=== PATIENT | female | born 1990 | race Caucasian/White ===

== ENCOUNTER → 2021-10-31 14:51 | Outpatient (CLI) | payer OTHER, SELFPAY ==
--- NOTE | 2021-10-31 | DI.US.S_ITS ---
PROCEDURE: US PELVIC COMPLETE INDICATIONS: BLEEDING IN FIRST TRIMESTER TECHNIQUE: Real-time scanning was performed of the pelvic organs, with image documentation. Additional endovaginal scanning was necessary due to incomplete visualization of the adnexal and endometrial structures by transabdominal scanning. COMPARISON: None. FINDINGS: Uterus: Uterus is anteverted and normal in size at 9.1 x 4.8 x 5.9 cm. The myometrium is homogeneous. The endometrium measures 14 point mm combined thickness. No IUP. Ovaries: The right ovary measures 2.4 x 2.1 x 1.9 cm, with a calculated ovarian volume of 4.9 cc. The left ovary measures 2.2 x 2.0 x 2.5 cm, with a calculated ovarian volume of 5.7 cc. The ovaries have a normal sonographic appearance. Less than 12 follicles can be seen in each ovary. No adnexal masses are seen. Other: No pathologic free abdominal or pelvic fluid. 1. IMPRESSION: No intra-or extrauterine is identified. Differential considerations would include spontaneous , early intrauterine gestation as well as occult ectopic . Recommend clinical correlation with serial beta-hCGs and/or followup sonographic imaging if indicated. We strive to produce accurate, complete, and clear reports of imaging services. To assist us in improving patient care, this report was composed using standard report templates and voice recognition software. Therefore, it may contain abnormal punctuation, insertions and/or omissions. Occasional wrong-word or sound-alike substitutions may occur. Though we review the report and make efforts to correct it, we do recommend that the report be read carefully in proper context to recognize any text inaccuracies. Dictated by: Colton Magdaleno [facility] Interpreted: David Mar MD on 10/31/2021 at 15:30 Transcribed by: RUDOLPH on 10/31/2021 at 15:47 Approved by: David Mar M.D. on 10/31/2021 at 16:21
== END ==
PROVIDERS: Referring Provider Nurse Practitioner Obstetrics & Gynecology; Visit Provider Nurse Practitioner Obstetrics & Gynecology
DX: O26.851 Spotting complicating pregnancy, first trimester (principal)
CPT/HCPCS: 76856

== ENCOUNTER → 2022-06-10 15:52 | Outpatient (CLI) | payer OTHER, SELFPAY ==
--- NOTE | 2022-06-10 15:55 | DI.US.S_ITS ---
PROCEDURE: US OB >= 14 WEEKS FETUS INDICATIONS: ANATOMY SCAN OUTSIDE/PRIOR DATING DATA: Last menstrual period (LMP): 01/18/2022. LMP-based estimated date of delivery (CHERY): 10/25/2022. First dating scan (date and location): Today's exam. Estimated date of delivery (CHERY) from first dating scan: 10/27/2022. The calculations are made using the clinical CHERY of 10/25/2022. TECHNIQUE: Real-time scanning was performed of the fetus, with image documentation and biometric measurements. Endovaginal scanning: Not performed COMPARISON: None. FINDINGS: General: A single living intrauterine gestation is present. Presentation: Variable. Placenta: Placental position is posterior , without previa. Amniotic fluid index: 12.6 cm, normal range is 5-24 cm. Single deepest vertical pocket is 3.7 cm. heart rate: 141 beats per minute. Maternal cervical canal: 8.1 cm long. Normal lower limit is 2.5 cm. biometrics: Biparietal diameter: 4.4 cm, 19 weeks 3 days Head circumference: 17.4 cm, 19 weeks 6 days Abdominal circumference: 15.2 cm, 20 weeks 3 days Femur length: 3.4 cm, 20 weeks 6 days Clinically estimated gestational age: 20 weeks 3 days Composite gestational age from present scan: 20 weeks 1 day Estimated weight and percentile: 357 g, 48th percentile Anatomic survey: Neuro: Ventricles are non-dilated at less than 10 mm. Cisterna magna is normal at 3-11 mm. Cerebellum is normal in size and morphology. Nuchal skin fold: Normal at less than 6 mm between 14-21 weeks gestational age. Face: Nose and lips, facial profile are normal. Spine: No evidence for spina bifida. Heart: 4-chambered heart is present, with normal ventricular outflow tracts. Diaphragm: Diaphragm is intact. Stomach: Left-sided stomach is present. Kidneys: No hydronephrosis. Normal is less than 5 mm in 2nd trimester, less than 7 mm in 3rd trimester. Cord: 3-vessel cord has orthotopic insertion. Bladder: Normal in size. Extremities: All 4 extremities identified. IMPRESSION: Single living intrauterine at 20 weeks 3 days, CHERY of 10/25/2022. Normal anatomy survey. Estimated weight of 357 g, 47th percentile. We strive to produce accurate, complete, and clear reports of imaging services. To assist us in improving patient care, this report was composed using standard report templates and voice recognition software. Therefore, it may contain abnormal punctuation, insertions and/or omissions. Occasional wrong-word or sound-alike substitutions may occur. Though we review the report and make efforts to correct it, we do recommend that the report be read carefully in proper context to recognize any text inaccuracies. Dictated by: Guillaume Minor M.D. on 06/10/2022 at 16:57 Approved by: Guillaume Minor M.D. on 06/10/2022 at 17:00
== END ==
PROVIDERS: Referring Provider Nurse Practitioner Obstetrics & Gynecology; Visit Provider Nurse Practitioner Obstetrics & Gynecology
DX: Z34.02 Encounter for supervision of normal first pregnancy, second trimester (principal); Z3A.20 20 weeks gestation of pregnancy
CPT/HCPCS: 76811

== ENCOUNTER → 2022-07-21 08:09 | Outpatient (CLI) | payer OTHER, SELFPAY ==
[2022-07-21 08:55] LABS: Hematocrit 32.3 % (36-46); Mean Corpuscular HGB Conc 33.9 % (30-36); Mean Corpuscular Hemoglobin 28.3 PG (26-34); Mean Corpuscular Volume 83.4 fL (80-100); Platelet Count 212 X10^3/uL (150-400); Red Blood Cell Count 3.87 X10^6/uL (4.0-5.2); Red Cell Distribution Width 14.1 % (11.6-14.8); White Blood Cell Count 13.2 X10^3/uL (4.5-11.0)
[2022-07-21 09:15] LABS: Glucose Fasting 83 mg/dL (70-100)
[2022-07-21 10:16] LABS: Glucose 1 Hour 120 mg/dL (70-170)
[2022-07-21 10:29] LABS: Glucose Tol Interpretation INTERPRETATION
[2022-07-21 11:13] LABS: Glucose 2 Hour 105 mg/dL (70-140)
== END ==
PROVIDERS: Referring Provider Nurse Practitioner Obstetrics & Gynecology; Visit Provider Nurse Practitioner Obstetrics & Gynecology
DX: Z13.1 Encounter for screening for diabetes mellitus (principal)
CPT/HCPCS: 36415; 82951; 82952; 85027

== ENCOUNTER 2022-11-03 07:22 | Inpatient (IN) | payer OTHER, SELFPAY ==
--- NOTE | 2022-11-03 07:35 | PM.OBHP.1 ---
OB HPI Date/Time Date of admission: 11/03/22 Date Patient Seen: 11/03/22 Time Patient Seen: 07:35 History of Present Condition Chief complaint: Induction : 2 Para: 0 Estimated Date of Delivery: 10/25/22 Estimated Gestational Age (weeks): 41w2d Narrative: Christina Mace is a 32 year old female at 41w2d by early ultrasound. She is here today for an induction of labor. Christina had a bowles catheter placed on 11/02/22 approx 1700. Christina had an uneventful with the exception of a breast infection early in , and a vaginal yeast infection and positive GBS culture in her 3rd trimester. Overnight, the bowles catheter was painful, with contractions every 10 minutes, gradually decreasing in intensity. Had bloody mucus at 0145 and called CNM, concerned. Baby moving well. Excited to meet her baby girl soon. Name is a surprise! Planning epidural, but open to trying other methods of pain relief prior to that. Christina denies headache, visual changes, epigastric pain. Indications Indication for induction OB: post dates History of Present care: good care, initiated at week # (7), number of visits (17) and pounds weight gain (33) Dating criteria: based on 1st trimester US only Ultrasounds: normal 1st trimester US and normal mid trimester US Obstetrical complications: none Medical complications: psychiatric (anxiety/panic attacks) Preadmission Labs Blood type: O (+) positive -: Antibody screen: negative, Cystic fibrosis screen: negative, GBS status: positive, HBsAG: negative, HIV: negative and RPR/VDLR: negative -: Chlamydia screen: not detected and Gonorrhea screen: not detected -: Rubella: immune and Varicella: immune HCT: 32.3 HCAB: negative Cell-free DNA: Negative, XX Narrative: 2 hour GTT: Fastin 1 hour: 120 2 hour: 105 Prior (ies) History: SAB 10/31/2021 Evaluation Evaluation Baseline heart rate: 130 Variability: Average (6-10) monitor accelerations: Present Monitor Decelerations: Absent Contraction Frequency (minutes): 3 Uterine Contraction Intensity: Moderate (to palpation but only mildly painful.) Status: Category l Dilation (cm): 4.5 Effacement (%): 80 Dilation: 3-4 cm Effacement: >/=80% station: -2 Position of cervix: posterior Consistency: soft Nicholas score: 8 PFSH Medical History (Updated 11/03/22 @ 07:51 by Cheyanne Bedoya CNM, NABILA) Anxiety Yeast infection Family History Grandmother Osteoporosis Other Heart disease Social History (Updated 11/03/22 @ 07:57 by Cheyanne Bedoya CNM, ARNP) marital status: household members: spouse lives independently: Yes Smoking Status: Never smoker alcohol intake: former substance use type: does not use during the past year weight has: increased > 10 lbs Meds Home Medications and Allergies Home Medications Medication Instructions Recorded Confirmed Type 11/03/22 History dicloxacillin 500 mg capsule 500 mg PO 4XD 11/03/22 11/03/22 History Allergies Allergy/AdvReac Type Severity Reaction Status Date / Time No Known Drug Allergies Allergy Verified 11/03/22 08:25 Review of Systems Review of Systems Narrative: Negative except as mentioned in HPI. OB Exam Narrative Exam Narrative: BP 139/86 HR:77 bpm RR: 16/min Temp: 36.3 C Resp Effort & Inspection: normal respiratory effort and able to speak in complete sentences Auscultation: clear to auscultation bilaterally Cardio Rate: regular rate Rhythm: regular rhythm Heart Sounds: normal, physiologic split S2 Extremities Lower extremity: Yes normal to inspection GI Inspection: normal to inspection and other (gravid with normal fundal height) External Female Exam: Yes normal external appearance Objective Labs 11/03/22 07:45 Assessment and Plan Assessment and Plan Assessment and Plan narrative: at 41w2d GBS pos Rh pos History of breast infection in History of vaginal yeast infection in Early labor Hypertensive on admit FHT Cat I Plan: Admit to L&D Pre-eclampsia panel for admission hypertension Pitocin for induction of labor Continuous monitoring per protocol Anticipate NSVB.
[2022-11-03 08:12] LABS: Add Manual Diff / Slide Review NO; Basophils Absolute Auto 100 /uL (0-100); Basophils Percent Auto 0.3 % (0-2); Eosinophils Absolute Auto 100 /uL (0-450); Eosinophils Percent Auto 0.3 % (2-4); Hematocrit 34.2 % (36-46); Lymphocytes Absolute Auto 2500 /uL (1100-4500); Lymphocytes Percent Auto 15.6 % (25-40); Mean Corpuscular HGB Conc 32.2 % (30-36); Mean Corpuscular Hemoglobin 23.7 PG (26-34); Mean Corpuscular Volume 73.4 fL (80-100); Monocytes Absolute Auto 1200 /uL (0-900); Monocytes Percent Auto 7.6 % (3-14); Neutrophils Absolute Auto 12200 /uL (1500-7000); Neutrophils Percent Auto 76.2 % (50-75); Platelet Count 214 X10^3/uL (150-400); Red Blood Cell Count 4.67 X10^6/uL (4.0-5.2); Red Cell Distribution Width 15.8 % (11.6-14.8)
[2022-11-03 08:14] VITALS: BP 139/86
[2022-11-03] MEDS: OXYTOCIN PREMIX 30 UNIT/500 ML PLAST..BAG IV (08:51)
[2022-11-03] MEDS: LACTATED RINGERS 1,000 ML 100 ML IV ×4 (08:52→22:22)
--- NOTE | 2022-11-03 12:21 | PM.OBPNLAB ---
Date/Time Date Patient Seen: 11/03/22 Time Patient Seen: 12:00 Pain Control Pain control: tolerating well Comments: Sitting up on the ball, talking with family. Feeling uncomfortable contractions, similar to last night with the Farley balloon in, for 2-3 hours now. No vaginal bleeding or leaking of fluid. VS: BP 133/86mmHg, HR 75bpm, T 36.3C Temporal Pelvic Exam Dilation (cm): 4 Effacement (%): 80 station: -2 Comments: CE unchanged Contractions Monitor mode: External Pitocin rate (mU/min): 3 Contraction frequency (min): 3 Contraction duration (min): 1 Contraction pattern: Regular Contraction intensity: Moderate (to palpation but only mildly painful.) Status status: Category ll Heart Rate Baseline: 150 Monitor Accelerations: Present Monitor Decelerations: Late (rare) and Variable Monitor Variability: Moderate Comments: FHR overall reassuring Assessment and Plan Assessment: induction ongoing Plan: continuous present management Comments: Continue pitocin titration to adequate contraction pattern. Reassess in 4 hours or sooner, PRN.
[2022-11-03 12:30] LABS: Add Manual Diff / Slide Review NO
[2022-11-03 12:39] LABS: Aspartate Aminotransferase 24 IU/L (14-36); BUN Creatinine Ratio 10.3 (6-22); Blood Urea Nitrogen 4 mg/dL (7-17); Estimated Glomerular Filt Rate > 60 mL/min (>60); Uric Acid 4.4 mg/dL (2.5-6.2)
[2022-11-03] MEDS: FENT 2MCG/ML BUPIV 0.1% EPI 200 MCG/100 ML PLAST..BAG 6 MCG EPIDURAL ×2 (16:00→21:19)
[2022-11-03] MEDS: AMPICILLIN 2,000 MG in SODIUM CHLORIDE 0.9% 100 ML 200 MG IV (16:25)
--- NOTE | 2022-11-03 16:56 | PM.AN.REGBLK ---
[facility] <Shanell Latif CRNA - Last Filed: 11/04/22 09:07> Pre-procedure Procedure: Continuous Lumbar Epidural for L&D Attending OB provider: Cheyanne Bedoya PM/TINY narrative: active labor Hx: No personal or family history of anesthesia problems. ASA Class: II Labs: Hct TNP 11/03/22 08:30 Plt Count TNP 11/03/22 08:30 Medications: Current Medications Generic Name Dose Route Start Last Admin Trade Name Freq PRN Reason Stop Dose Admin Acetaminophen 975 mg 11/03/22 07:51 Acetaminophen 325 Mg Tablet PO Q8H PRN Pain, Mild (1-3) Calcium Carbonate 1,000 mg 11/03/22 07:51 Calcium Carbonate 500 Mg Tab PO Q4HR PRN Dyspepsia Carboprost Tromethamine 250 mcg 11/03/22 07:51 Carboprost 250 Mcg/Ml Ampul IM Q90M PRN Bleeding Fentanyl 100 mcg 11/03/22 07:51 Fentanyl 100 Mcg/2 Ml Inj IV Q1H PRN Pain, Severe (7-10) Oxytocin/Lactated Ringer's 30 unit in 500 mls @ 200 mls/hr 11/03/22 07:51 Oxytocin Premix IV CONT PRN Bleeding Protocol Tranexamic Acid 1,000 mg/ 100 mls @ 200 mls/hr 11/03/22 07:51 Sodium Chloride IV NOW PRN Bleeding Oxytocin/Lactated Ringer's 30 unit in 500 mls @ 2 mls/hr 11/03/22 08:00 11/03/22 08:51 Oxytocin Premix IV 2 milliunit/min TITRATE HILARY 2 mls/hr Administration Protocol 2 MILLIUNIT/MIN Lactated Ringer's 1,000 mls @ 100 mls/hr 11/03/22 08:00 11/03/22 16:25 Lactated Ringers IV 100 mls/hr CONT HILARY Administration Lidocaine HCl 20 ml 11/03/22 07:51 Lidocaine 1% 20 Ml INJ INTRA-OP PRN Post Delivery Methylergonovine Maleate 0.2 mg 11/03/22 07:51 Methylergonovine 0.2 Mg Tablet PO Q6HR PRN Heavy Bleeding Methylergonovine Maleate 0.2 mg 11/03/22 07:51 Methylergonovine 0.2 Mg/Ml Vial IM NOW PRN Bleeding Misoprostol 800 mcg 11/03/22 07:51 Misoprostol 200 Mcg Tablet CO NOW PRN Bleeding Misoprostol 400 mcg 11/03/22 07:51 Misoprostol 200 Mcg Tablet SL NOW PRN Bleeding Naloxone HCl 0.2 mg 11/03/22 07:51 Naloxone 0.4 Mg/Ml Vial IV Q2MIN PRN Opiate Reversal Ondansetron HCl 8 mg 11/03/22 07:51 Ondansetron 4 Mg/2 Ml Inj IV Q8H PRN Nausea And Vomiting Oxytocin 10 unit 11/03/22 07:51 Oxytocin 10 Unit/Ml Vial IM NOW PRN Bleeding Allergies: Allergies Allergy/AdvReac Type Severity Reaction Status Date / Time No Known Drug Allergies Allergy Verified 11/03/22 08:25 Procedure Insertion date: 11/03/22 Insertion time: 16:35 Prep/Local: betadine x3 and 1% lidocaine Interspace: l3 - l4 Patient position: sitting Needle: 17 gauge Tuohy Loss of resistance with: air YUDELKA at (cm): 6 Catheter placed at SKIN (cm): 13 Initial Medications TEST DOSE time: 16:37 TEST DOSE: 1.5% lidocaine with epinephrine 1:200k (mL): 5 BOLUS DOSE time: 16:44 BOLUS DOSE (mL): 6 BOLUS DOSE med: 0.125% bupivacaine with fentanyl 10 mcg/mL Infusion INFUSION: 0.125% bupivacaine and with fentanyl 2 mcg/mL Initial rate (mL/hr): 6 Post-procedure Anesthesia time START: 16:31 Anesthesia time END: 04:25 <Walter Hamilton CRNA - Last Filed: 11/04/22 13:00> Infusion Subsequent interventions: 11/03/22 1730 - epidural rate increased to 10mL/hr, bolus of 6mL of bag solution given with good effect. 11/03/22 1820 - epidural rate increased to 12 mL/hr, additional bolus of 5mL bag solution given. Patient reports feeling more comfortable after onset, CNM at bedside. 11/03/22 1930 - patient reports right sided discomfort, however is laying left side. Patient turned to right side at approximately a 45 degree tilt and additional bolus of 4mL bag solution given. Reports feeling pressure lower. CNM again at bedside. 11/04/22 0430 - baby delivered, epidural to be removed by nursing staff per protocol, please see nursing documentation. Post-procedure Post-procedure Anesthesia Assessment: Yes CV function: HR/BP stable, Yes Resp function: RR/sat/airway adequate, Yes Post-op hydration adequate, Yes Pain control adequate, Yes Nausea & vomiting absent, Yes Temperature > 36 C, Yes Mental status appropriate and Yes Anesthesia complications
--- NOTE | 2022-11-03 17:20 | PM.OBPNLAB ---
Date/Time Date Patient Seen: 11/03/22 Time Patient Seen: 17:10 Pain Control Pain control: epidural Comments: Began to feel stronger contractions around 1430. Was able to walk halls and breathe through them. Tried NO2 @ 1555 with mild relief, but did not like it because it made her nauseous. Epidural requested at 1618. Feeling moderate relief with epidural, though continuing to breathe through contractions. Pelvic Exam Dilation (cm): 6 Effacement (%): 100 station: -3 Amniotic membrane status: Ruptured (clear) Comments: AROM manually during exam while assessing presentation LOP, anterior asynclitic Contractions Monitor mode: External Pitocin rate (mU/min): 13 Contraction frequency (min): 2 Contraction pattern: Regular Contraction intensity: Moderate (to palpation but only mildly painful.) Status status: Category l Heart Rate Baseline: 135 Monitor Accelerations: Present Monitor Decelerations: Early Assessment and Plan Assessment: active labor Plan: continuous present management Comments: Continue to work with anesthesia to achieve adequate pain relief. Encourage position changes with a peanut. Will turn over to CHU Bedoya at 6pm. Reassess in 4 hours or sooner, PRN.
[2022-11-03] MEDS: AMPICILLIN 1,000 MG in SODIUM CHLORIDE 0.9% 100 ML 200 MG IV (20:40)
--- NOTE | 2022-11-03 20:53 | P.HPOB_ITS ---
OB HPI Date/Time Date of admission: 11/03/22 Date Patient Seen: 11/03/22 Time Patient Seen: 18:00 History of Present Condition Chief complaint: PROM Estimated Gestational Age (weeks): 39w3d : 1 Para: 0 Narrative: Julián Saavedra is a 29 year old female at 39 weeks 3 days by early ultrasound. She is here after confirmation of PROM; reports fluid began leaking approx 1400. Julián has a history of seizure disorder, currently well controlled on Keppra 750 mg BID with 1000 mg folic acid BID; has not had a seizure in over 8 years. She also has a history of orthostatic hypotension. She is here with her , Moses. They are excited to meet their baby, John. After reviewing options, Julián prefers expectant management of labor and declines a cervical exam at this time. Julián feels good today and denies headache, visual changes, epigastric pain. care: good care, initiated at week #, number of visits (10) and pounds weight gain (36) Ultrasounds: normal 1st trimester US and normal mid trimester US Preadmission Labs Last OB Lab Results: Blood Type O Positive 11/03/22 07:45 Antibody Screen Negative 11/03/22 07:45 Hematocrit TNP 11/03/22 08:30 Hemoglobin TNP 11/03/22 08:30 [facility] Medical History (Updated 11/03/22 @ 07:51 by Cheyanne Bedoya CNM, NABILA) Anxiety Yeast infection Family History Grandmother Osteoporosis Other Heart disease Social History (Updated 11/03/22 @ 07:57 by Cheyanne Bedoya CNM, NABILA) marital status: household members: spouse lives independently: Yes Smoking Status: Never smoker alcohol intake: former substance use type: does not use during the past year weight has: increased > 10 lbs Meds Home Medications and Allergies Home Medications Medication Instructions Recorded Confirmed Type 11/03/22 History dicloxacillin 500 mg capsule 500 mg PO 4XD 11/03/22 11/03/22 History Allergies Allergy/AdvReac Type Severity Reaction Status Date / Time No Known Drug Allergies Allergy Verified 11/03/22 08:25 Objective Labs 11/03/22 08:30 11/03/22 08:30 Labs: Laboratory Results - last 24 hr 11/03/22 11/03/22 11/03/22 07:45 07:45 08:30 WBC 16.0 H TNP RBC 4.67 TNP Hgb 11.0 L TNP Hct 34.2 L TNP MCV 73.4 L TNP MCH 23.7 L TNP MCHC 32.2 TNP RDW 15.8 H TNP Plt Count 214 TNP Neut % (Auto) 76.2 H Not Reportable Lymph % (Auto) 15.6 L Not Reportable Mitchell % (Auto) 7.6 Not Reportable Eos % (Auto) 0.3 L Not Reportable Baso % (Auto) 0.3 Not Reportable Neut # (Auto) 44131 H Lymph # (Auto) 2500 Not Reportable Mitchell # (Auto) 1200 H Not Reportable Eos # (Auto) 100 Baso # (Auto) 100 Not Reportable BUN Creatinine Estimated GFR BUN/Creatinine Ratio Uric Acid AST Blood Type O Positive Antibody Screen Negative 11/03/22 08:30 WBC RBC Hgb Hct MCV MCH MCHC RDW Plt Count Neut % (Auto) Lymph % (Auto) Mitchell % (Auto) Eos % (Auto) Baso % (Auto) Neut # (Auto) Lymph # (Auto) Mitchell # (Auto) Eos # (Auto) Baso # (Auto) BUN 4 L Creatinine 0.39 L Estimated GFR > 60 BUN/Creatinine Ratio 10.3 Uric Acid 4.4 AST 24 Blood Type Antibody Screen
--- NOTE | 2022-11-03 21:06 | PM.OBPNLAB ---
Date/Time Date Patient Seen: 11/03/22 Time Patient Seen: 21:06 Pain Control Comments: Epidural in place, patient uncomfortable with rectal pressure but good contraction coverage when we entered the room. After changing positions to R side, break through contraction pain on L side, using PCEA button frequently. Christina was thought to be fully dilated by student land lease information clerk. Coached on pushing with student land lease information clerk at bedside. With position change to R lateral, student land lease information clerk reassessed and SVE showed 7/100/-2, confirmed by CNM. VS: BP: 121/68 P: 96 bpm Sp02: 98% T: 36.4 Pelvic Exam Dilation (cm): 7 Effacement (%): 100 station: -2 Amniotic membrane status: Ruptured (clear) Contractions Monitor mode: External Pitocin rate (mU/min): 13 Contraction frequency (min): 2 Contraction duration (min): 1 Contraction pattern: Regular Contraction intensity: Strong/Firm Status status: Category ll Heart Rate Baseline: 130 Monitor Accelerations: Absent Monitor Decelerations: Variable (intermittent) Monitor Variability: Moderate Assessment and Plan Assessment: active labor and induction ongoing Plan: continuous present management Comments: A: Term nullipara Active labor with augmentation ROM x 4hrs GBS positive with adequate coverage FHR Cat II P:Continue pitocin per protocol Emotional support given for inaccurate cervical exam, reassured of normalcy of labor progress, plans to rest Frequent position changes Reassess in 4 hours or sooner as needed
--- NOTE | 2022-11-03 23:49 | PM.OBPNLAB ---
Date/Time Date Patient Seen: 11/03/22 Time Patient Seen: 23:49 Pain Control Pain control: epidural Comments: Continues to feel uncomfortable rectal pressure, but able to rest between contractions. Has had some bloody show and continues to leak clear fluid. VS: BP 126/76mmHg, HR 94bpm, T 37.4C Temporal Pelvic Exam Dilation (cm): 9 Effacement (%): 100 station: +1 Amniotic membrane status: Ruptured (clear) Contractions Monitor mode: External Pitocin rate (mU/min): 6 Contraction frequency (min): 2 Contraction pattern: Regular Contraction intensity: Strong/Firm Status status: Category ll Heart Rate Baseline: 150 Monitor Accelerations: Absent Monitor Decelerations: Late and Variable Monitor Variability: Moderate Comments: periodic runs of closely spaced contractions followed by worsening decelerations (late & variable), improve with position changes, IVFB and decreasing pitocin. Assessment and Plan Assessment: active labor Plan: continuous present management Comments: Continue pitocin, per protocol. Continue positioning with the peanut. Reassess in 2 hours or sooner, PRN.
[2022-11-04] MEDS: AMPICILLIN 1,000 MG in SODIUM CHLORIDE 0.9% 100 ML 200 MG IV (01:03)
[2022-11-04] MEDS: FENT 2MCG/ML BUPIV 0.1% EPI 200 MCG/100 ML PLAST..BAG 6 MCG EPIDURAL (01:39)
--- NOTE | 2022-11-04 04:37 | P.PCNOB_ITS ---
Events: Labor Induction Labor & Delivery Delivery date: 11/04/22 Intrapartal Events: Deceleration Cervical ripening method: per Farley bulb protocol Induction method: per pitocin protocol Delivery augmentation: pitocin Delivery monitor: external FHT and external uterine Route of delivery: Episiotomy description: None L&D Laceration Description: Vaginal - 1st Degree Anesthesia Type: Epidural Narrative: Patient labored well with adequate episural anesthesia, continued leaking of clear fluid no concern for infection, GBS adequately treated x 3 doses, pitocin max dose of 13mu/min and steadily increasing rectal pressure. FHR was primarily Cat II throughout labor. Patient pushed well with coaching and encouragement in right and left tilt positions. NSVB of a viable baby girl in LUCY position. There was no nuchal cord and the shoulders delivered easily, without additional maneuvers. [place] was placed on maternal abdomen for drying, stimulation and skin to skin. Remaining 30 units of pitocin in 500mL LR was increased to 250mL/hr for active management of the third stage of labor. After cessation of pulsation, the cord was double clamped by CNM and cut by FOB. Cord blood sample was collected. Gentle cord traction and a single maternal push led to spontaneous, Schultze delivery of an apparently intact placenta, membranes and 3 vessel cord. Fundus immediately firm and bleeding scant. Inspection revealed a 1st degree vaginal laceration that repaired with 3.0 Chromic in the usual fashion. QBL 150mL. Both mother and baby stable and skin to skin as I left the room. [place] Baby 1: Infant gender: Female Presentation: vertex Position: Right Occiput Anterior Placenta delivery description: Spontaneous Cord Vessel Description: 3 Vessels score (1 min): 7 score (5 min): 9 weight: 3.977 kg Plan for aftercare: Routine care
[2022-11-04] MEDS: KETOROLAC 30 MG/ML VIAL IV (05:47)
[2022-11-04] MEDS: ACETAMINOPHEN 325 MG TABLET 650 MG PO ×2 (08:42→19:34)
[2022-11-04] MEDS: DERMOPLAST SPRAY 20% 60 ML 1 SPRAY TOP (08:42)
[2022-11-04] MEDS: IBUPROFEN 600 MG TABLET PO (17:02)
[2022-11-05] MEDS: IBUPROFEN 600 MG TABLET PO ×2 (03:53→09:39)
[2022-11-05] MEDS: ACETAMINOPHEN 325 MG TABLET 650 MG PO ×2 (03:54→09:39)
--- NOTE | 2022-11-05 05:58 | P.DS_ITS ---
Discharge Providers Provider Date of admission: 11/03/22 07:22 Discharge Date: 11/05/22 Primary care physician: Doctor Rosalie MD Consults: 11/03/22 07:51 Consult to Anesthesiology Urgent Comment: Consulting Provider: Anesthesiologist Reason for consultation: Epidural 11/05/22 04:36 Consult to Condenser Setter Routine Comment: Discharge provider: Cheyanne Bedoya CNM, NABILA Summary Hospital Course Date Patient Seen: 11/05/22 Time Patient Seen: 06:10 Diagnoses: O70, Z39.1 Hospital Course: Delivery date: 11/04/22 Intrapartal Events: Deceleration Cervical ripening method: per Bowles bulb protocol Induction method: per pitocin protocol Delivery augmentation: pitocin Delivery monitor: external FHT and external uterine Route of delivery: Episiotomy description: None L&D Laceration Description: Vaginal - 1st Degree Anesthesia Type: Epidural Patient arrived for IOL, bowles removed. Pitocin initiated. Labored well then requested epidural anesthesia, continued leaking of clear fluid no concern for infection, GBS adequately treated x 3 doses, pitocin max dose of 13mu/min and steadily increasing rectal pressure.? AROM to assist with induction. FHR was primarily Cat II throughout labor.? Patient pushed well with coaching and encouragement in right and left tilt positions.? NSVB of a viable baby girl in LUCY position.? There was no nuchal cord and the shoulders delivered easily, without additional maneuvers.? was placed on maternal abdomen for drying, stimulation and skin to skin.? Remaining 30 units of pitocin in 500mL LR was increased to 250mL/hr for active management of the third stage of labor.? Af ter cessation of pulsation, the cord was double clamped by CNM and cut by FOB.? Cord blood sample was collected.? Gentle cord traction and a single maternal push led to spontaneous, Schultze delivery of an apparently intact placenta, membranes and 3 vessel cord.? Fundus immediately firm and bleeding scant.? Inspection revealed a 1st degree vaginal laceration that repaired with 3.0 Chromic in the usual fashion.? QBL 150mL.? Normal course. ? ? ? Infant gender: Female ? ? ? Presentation: vertex ? ? ? Position: Right Occiput Anterior ? ? ? Placenta delivery description: Spontaneous ? ? ? Cord Vessel Description: 3 Vessels ? ? ? score (1 min): 7 ? ? ? score (5 min): 9 ? ? ? weight: 3.977 kg Peripartum Data Infant Delivery Method: Natural Vaginal Laceration Description: Vaginal - 1st Degree Procedures: Vaginal laceration repaired in usual fashion. complications: none [place] 1: Gender: Female Disposition of : home Discharge Diagnosis (1) First degree perineal laceration: Status: Acute (2) (normal spontaneous vaginal delivery): Status: Acute (3) Breast feeding status of mother: Status: Acute Status at Discharge Cognitive/behavioral status at discharge: oriented and calm Functional status at discharge: independent ambulation Overall status at discharge: patient is progressing back to baseline Time Spent with Patient Time attestation: Total time spent providing and/or coordinating discharge services: Time spent: Less than 30 minutes Specific discharge activities: discharge teaching Objective Labs 11/03/22 08:30 11/03/22 08:30 Exam Vital Signs (past 8 hours): BP: 124/83 HR: 84 bpm RR: 16/min Temp: 97.9 F Other: Fundus firm at U, midline. Lochia scant Perineum intact with minimal edema Discharge Plan Discharge Plan Patient Disposition: Home Discharge orders & Medications Prescriptions: Continued 100 mg Discontinued dicloxacillin 500 mg capsule 500 mg PO 4XD Follow up/Referrals: Doctor Wiggins MD [Primary Care Provider] - Cheyanne Bedoya CNM, COMPLIANCE FIELD TECHNICIAN [Advanced Dump Grader] - 2 Weeks (2 weeks and 6 weeks as scheduled (see e-mail).) Diet/Activity/Treatments Diet: Diet as Tolerated and Regular Diet comment: Increase fiber and hydration Activity: low fitch for 2 weeks. Lots of [id number]. Cold/Heat Therapy: As needed. Skin/Wound/Dressing Care Skin care: Gentle Report to your healthcare provider any signs of infection, such as:: chills, fever, unusual drainage and unusual redness Visit Report/Discharge Packet Stand Alone Forms: Patient Portal/API Discharge Data Primary Care Provider: Doctor Rosalie
[2022-11-05 09:11] VITALS: BP 126/79; PULSE 71; RESP 15; TEMP 36.3
== END 2022-11-05 11:10 | disposition home or self-care (01) | DRG 807 ==
PROVIDERS: Nurse Practitioner Obstetrics & Gynecology; Admitting Provider Advanced Practice Midwife; Referring Provider Advanced Practice Midwife; Visit Provider Advanced Practice Midwife
DX: O48.0 Post-term pregnancy (principal); Z37.0 Single live birth; O70.0 First degree perineal laceration during delivery; Z3A.41 41 weeks gestation of pregnancy; O99.824 Streptococcus B carrier state complicating childbirth; O99.344 Other mental disorders complicating childbirth; F41.9 Anxiety disorder, unspecified; O76 Abnormality in fetal heart rate and rhythm complicating labor and delivery
CPT/HCPCS: 36415; 59050; 84450; 84550; 85025; 86850; 86900; 86901; G0379; J0290; J1885; J2590